=== PATIENT | male | born 1945 | race Caucasian/White ===

== ENCOUNTER → 2018-07-19 | Outpatient (CLI) | payer MEDICARE ==
[2018-07-19 15:29] LABS: INR 2.17 (0.85-1.15); PROTHROMBIN TIME 22.4 SEC (9.6-11.6)
== END | disposition home or self-care (01) ==
LOC: LAB 14:45
PROVIDERS: ATTEND Family Medicine
DX: Z79.01 Long term (current) use of anticoagulants (principal); Z86.711 Personal history of pulmonary embolism
CPT/HCPCS: 36415; 85610

== ENCOUNTER → 2022-04-07 | Outpatient (CLI) | payer MEDICARE ==
[2022-04-07 12:10] LABS: ALBUMIN 3.7 g/dL (3.5-5.0); CREATININE 1.7 mg/dL (0.5-1.5); TOTAL PROTEIN, SERUM 7.1 g/dL (6.0-8.3)
== END | disposition home or self-care (01) ==
LOC: RAH 10:36
PROVIDERS: ATTEND Internal Medicine
DX: E04.1 Nontoxic single thyroid nodule (principal)
CPT/HCPCS: 36415; 76536; 80053; 82043

== ENCOUNTER → 2024-06-16 | Outpatient (CLI) | payer MEDICARE ==
[~2024-06-16] MED LIST: AMOX1TAB16 PO; ASPI-1443 PO; ATOR40TA71 PO; BUDE10.7 IH; DULA3PEN SQ; EMPA25TA PO; GLIP10TA16 PO; IRBE1TAB43 PO; tamsulosin
--- NOTE | 2024-06-21 08:41 | HMCSR ---
APPROVED REPORT Laterality: Bilateral Indications CVA/TIA: Doppler Spectral Velocity Analysis PSV / EDVPSV / EDV ECA (R) 83 / cm/sECA (L) 105 / cm/s dICA (R) 85 / 21 cm/sdICA (L) 142 / 41 cm/s [place] (R) 48 / 15 cm/smICA (L) 75 / 28 cm/s pICA (R) 36 / 8 cm/spICA (L) 34 / 13 cm/s dCCA (R) 62 / 15 cm/sdCCA (L) 61 / 16 cm/s mCCA (R) 58 / 16 cm/smCCA (L) 70 / 15 cm/s pCCA (R) 71 / 11 cm/spCCA (L) 55 / 11 cm/s Vert (R) 39 / cm/sVert (L) 34 / cm/s Subl. (R) 91 / cm/sSubl. (L) 64 / cm/s ICA/CCA 1.20ICA/CCA 2.03 Technologist Impression Minimal plaque noted in the bilateral carotids. Right and left ICA appear patent, without hemodynamic significance. Left distal ICA tortuous causing elevated velocities. Bilateral vertebral arteries appear antegrade. Conclusion Minimal plaque noted in the bilateral carotids. Right and left ICA appear patent, without hemodynamic significance. Left distal ICA tortuous causing elevated velocities. Bilateral vertebral arteries appear antegrade. Conclusion Minimal plaque noted in the bilateral carotids. Right and left ICA appear patent, without hemodynamic significance. Left distal ICA tortuous causing elevated velocities. Bilateral vertebral arteries appear antegrade.
== END | disposition home or self-care (01) ==
LOC: SHCH 10:54
PROVIDERS: ATTEND Student in an Organized Health Care Education/Training Program
DX: G45.9 Transient cerebral ischemic attack, unspecified (principal)
CPT/HCPCS: 93880

== ENCOUNTER 2024-08-30 16:20 | Emergency (ER) | payer MEDICARE ==
[~2024-08-30] VITALS: Ht 180.3 cm; Wt 86.2 kg
[~2024-08-30 16:20] MED LIST changes: -AMOX1TAB16 PO; -BUDE10.7 IH; -DULA3PEN SQ; -EMPA25TA PO; -GLIP10TA16 PO; +TADA5TAB5 PO; +TAMS-55 PO; -tamsulosin
[2024-08-30 16:21] VITALS: BP 170/77; PULSE 71; RESP 20; TEMP 98
--- NOTE | 2024-08-30 16:34 | NUR ---
PT JUST NOW PLACED IN MY ED BED 12
--- NOTE | 2024-08-30 16:48 | ERN ---
General Chief Complaint: Urinary Retention Stated Complaint: UNABLE TO URINATE Time Seen by MD: 16:21 Source: patient History of Present Illness Initial Comments This is a an 79-year-old gentleman coming in complaining of urine retention. Patient states that this has been ongoing for several weeks and has had a Thakur in place in the past. He states his primary care physician removed the Thakur. Allergies: Coded Allergies: No Known Drug Allergies (Unverified Allergy, Unknown, 08/19/23) Home Meds Active Scripts Tamsulosin HCl (Flomax) 0.4 Mg Cap.er.24h, 0.4 MG PO DAILY, #30 CAPSULE.DR Prov:GUERDA KENNEY MD 08/16/24 Reported Medications Tadalafil (Tadalafil) 5 Mg Tablet, 5 MG PO DAILY, TAB 08/13/24 Irbesartan/Hydrochlorothiazide (Irbesartan-Hctz 300-12.5 mg Tb) 300 Mg-12.5 Mg Tablet, 1 EACH PO DAILY, TAB 08/19/23 Atorvastatin Calcium (Atorvastatin Calcium) 40 Mg Tablet, 40 MG PO AM, TAB 08/19/23 Aspirin (Aspirin EC) 81 Mg Tablet.dr, 81 MG PO DAILY, TAB 08/19/23 Past Medical History Past Medical History: CHF, High Cholesterol, Hypertension, Prostatitis Medical History Other: SKIN CA Past Surgical History: Appendectomy, Pacer/AICD Surgical History Other: SKIN CA REMOVAL RECENTLY, CARDIAC ABLATION ROS Dictation CONSTITUTIONAL: No chills, no fever, no weakness, no diaphoresis, no malaise. HEAD/FACE: No signs of trauma. EENT: No eye pain, no blurred vision, no tearing, no double vision, no ear pain, no ear discharge, no nose pain, no nasal congestion, no throat pain, no throat swelling, no mouth pain. RESPIRATORY: No cough, no orthopnea, no SOB, no stridor, no wheezing. CARDIOVASCULAR: No chest pain, no edema, no palpitations, no syncope. GASTROINTESTINAL/ABDOMINAL: No abdominal pain, no constipation, no diarrhea, no nausea, no vomiting. GENITOURINARY: No abnormal discharge, no dysuria, no frequent urination, no hematuria. No complaints of pain in the genitals. MUSCULOSKELETAL: No back pain, no gout, no joint pain, no joint swelling, no muscle pain, no muscle stiffness, no neck pain. INTEGUMENTARY: No change in color, no change in hair/nails, no dryness, no lesion, no lumps, no rash. NEUROLOGICAL/PSYCH: No anxiety, not depressed, no emotional problem, no headache, no numbness, no pre-existing deficit, no history of seizures, no tremors, no weakness. HEMATOLOGIC/LYMPHATIC: Not anemic, no history of blood clots, no apparent bleeding, no bruising, glands not swollen. All Systems Negative, Except as Noted. Physical Exam Physical Exam Dictation VITAL SIGNS: Reviewed. GENERAL APPEARANCE: Alert, oriented x3, no acute distress, obese. HEAD AND FACE: Non-traumatic. EYES: PERRL, pink conjunctivas, eyelid no trauma, anterior chamber clear. EARS: Pinnas intact and no signs of trauma or erythema. Ear canals clear and no discharge. TMs no erythema. NOSE: No discharge, no bleeding. OROPHARYNX: Mouth normal, teeth no caries, tongue pink. Pharynx clear, no erythema. Tonsils no exudates, no abscesses noted. Mucous membrane moist. NECK: Supple, non-tender, no thyromegaly, no masses, no JVD, no bruits. BREAST: Deferred. CHEST: No tenderness, no crepitus, no paradoxical movement, no retractions. LUNGS: Clear, well-ventilated, symmetric, no rales, no wheezing, no rhonchi, no stridor, good breath sounds bilaterally. HEART: Regular rate, regular rhythm, no murmur, no gallops. VASCULAR: No peripheral edema. ABDOMEN: Soft, positive bowel sounds, nondistended, no guarding, nontender, no rebound, no masses no hepatomegaly, no splenomegaly, no Alanis's sign, no hernias. RECTAL: Deferred. GENITAL: Deferred. NEUROLOGICAL: Normal speech, gross motor function intact, gross sensory fun ction intact. MUSCULOSKELETAL: Neck nontender, full range of motion, back nontender, full range of motion. EXTREMITIES: Nontender, full range of motion. SKIN: Color pink, dry, no turgor, no rash, no lacerations, no abrasions, no contusions. LYMPHATICS: Deferred. Results Laboratory and Microbiology Lab and Micro Result Laboratory Tests Test 08/30/24 17:05 Urine Color YELLOW (YELLOW) Urine Appearance CLEAR (CLEAR) Urine pH 5.5 (5.0-8.0) Urine Specific Majestic 1.019 (1.001-1.031) Urine Protein 30 mg/dL (NEGATIVE) H Urine Glucose (UA) 50 mg/dL (NEGATIVE) H Urine Ketones NEGATIVE mg/dL (NEGATIVE) Urine Occult Blood NEGATIVE (NEGATIVE) Urine Nitrate NEGATIVE (NEGATIVE) Urine Bilirubin NEGATIVE mg/dL (NEGATIVE) Urine Urobilinogen 0.2 mg/dL (0.2-1.0) Urine Leukocyte Esterase NEGATIVE Bry/uL Urine RBC 2-5 /HPF (0-1) H Urine WBC 0-1 /HPF (0-1) Urine Bacteria None /HPF (None Seen) Urine Hyaline Casts 2-5 /LPF (0-1 /LPF) H Labs Reviewed?: Yes MDM MDM: Differential diagnosis: Urinary retention, prostate enlargement, Rationale: Tests considered and ordered secondary to shared decision making include: Previous outside records reviewed: Old ER visits. Risk of complication and/or morbidity or mortality of patient management: None Patient is a an 79-year-old gentleman coming in to be evaluated for urinary retention. Patient has a extensive history of urine retention in the past in his had Thakur placed in the past. Thakur will be placed today and I did advised him appropriate follow up with the urologist for ongoing evaluation of urine retention. ED Course Orders Procedure Category Date Status Time Urinalysis LAB 08/30/24 Complete W/Microscopic 17:07 Chlamydia & Gc Pcr NICKIE 08/30/24 In Process 17:07 Vital Signs Date Time Temp Pulse Resp B/P (MAP) Pulse Ox O2 Delivery O2 Flow Rate FiO2 08/30/24 16:21 98.1 71 20 170/77 96 Room Air 0 DX & DISP Disposition: Discharge Departure Impression: Primary Impression: Urine retention Condition: Stable Referrals: SELF,REFERRAL (PCP) KALPESH LOPEZ MD, LUIS A MD Time of Disposition: 18:29 LILIANA BAIRES MD August 30, 2024 16:48
--- NOTE | 2024-08-30 16:50 | NUR ---
BLADDER SCANNER 899MLS OF URINE VIA SCANNER
--- NOTE | 2024-08-30 17:00 | NUR ---
PT STATED HE WANTS TO REFUSE ANY TAPIA CATHETER THAT IS 16FR OR BIGGER. I EXPLAINED THE PRO'S/CON'S OF NOT HAVING A PROPER SIZE TAPIA, BUT PT WAS INSISTENT DESPITE RISKS
--- NOTE | 2024-08-30 17:15 | NUR ---
URINE WAS COLLECTED, LABELED AND SENT TO LAB
[2024-08-30 17:22] LABS: APPEARANCE,URINE CLEAR (CLEAR); BILIRUBIN,URINE NEGATIVE (NEGATIVE); COLOR,URINE YELLOW (YELLOW); GLUCOSE, URINE (UA) 50 mg/dL (NEGATIVE); KETONES,URINE NEGATIVE (NEGATIVE); LEUKOCYTE ESTERASE ,URINE NEGATIVE Leu/uL (NEGATIVE); NITRATE,URINE NEGATIVE (NEGATIVE); OCCULT BLOOD,URINE NEGATIVE (NEGATIVE); PH,URINE 5.5 (5.0-8.0); PROTEIN,URINE 30 mg/dL (NEGATIVE); UROBILINOGEN,URINE 0.2 mg/dL (0.2-1.0)
[2024-08-30 17:24] LABS: WBC,URINE 0-1 /HPF (0-1)
--- NOTE | 2024-08-30 18:00 | NUR ---
PT DECIDED TO CHANGE HIS MIND D/T URINE NOT COMING OUT GOOD HE THOUGHT IT MIGHT W/ A SMALLER CATHETER
== END 2024-08-30 18:58 | disposition home or self-care (01) ==
LOC: EDH 16:20
DX: R33.9 Retention of urine, unspecified (principal); E78.00 Pure hypercholesterolemia, unspecified; I11.0 Hypertensive heart disease with heart failure; I50.9 Heart failure, unspecified; Z79.82 Long term (current) use of aspirin; Z79.899 Other long term (current) drug therapy; Z90.49 Acquired absence of other specified parts of digestive tract; Z95.810 Presence of automatic (implantable) cardiac defibrillator
CPT/HCPCS: 51702; 81001; 87491; 87591; 99284